=== PATIENT | female | born 1990 | race Hispanic/Latino ===

== ENCOUNTER 2018-07-09 09:21 | Outpatient (CLI) | payer MEDICAID ==
--- NOTE | 2018-07-09 10:01 | ULT ---
Exam: Pelvic ultrasound HISTORY: Amenorrhea COMPARISON: None TECHNIQUE: Multiple grayscale and color Doppler images were obtained in a transabdominal pelvic ultra sound. Spectral analysis of the Doppler waveforms of the ovaries were performed. FINDINGS: CERVIX: Partially obscured but where seen is grossly normal in appearance. UTERUS: Normal in size without focal abnormality. ENDOMETRIAL STRIPE: 5 mm which is within normal limits for a normal menstruating female patient. No f luid or fluid collection is seen in the endometrial canal. No free fluid is present. RIGHT OVARY: Normal flow, without focal mass. LEFT OVARY: Normal flow, without focal mass. IMPRESSION: Normal-appearing uterus and bilateral ovaries.
== END 2018-07-09 09:22 | disposition home or self-care (01) ==
LOC: BICULT 09:21
PROVIDERS: ATTEND Advanced Practice Midwife
DX: N91.2 Amenorrhea, unspecified (principal)
CPT/HCPCS: 76856; 93976